=== PATIENT | male | born 1985 | race Caucasian/White ===

== ENCOUNTER 2016-11-12 20:54 | Emergency (ER) | payer OTHER ==
[~2016-11-12] VITALS: Ht 172.7 cm; Wt 128.2 kg
[2016-11-12 21:00] VITALS: BP 140/82; PULSE 97; RESP 16; O2SAT 96
--- NOTE | 2016-11-12 21:25 | ED.REPORT ---
HPI-Extremity Problem Upper Date of Service Nov 12, 2016 ED Provider: Baltazar Bautista DO The patient is a 30 year old male who presents to the ED due to right pinky finger pain injured during baseball [employer]. Pain is exacerbated with movement and extension. The finger is swollen and red. Nursing Notes Stated Complaint: RIGHT HAND/FINGER INJURY Chief Complaint: Extremity Trauma Nursing Notes Reviewed: Yes Allergies: Coded Allergies: No Known Allergies (Unverified Allergy, Unknown, 11/12/16) General Time Seen by MD: 21:24 Chief Complaint Finger injury right 5 Hx Obtained From: Patient Arrived By: Walk-in Onset Occurred: Just prior to arrival Symptom Duration: Since onset Caused by: Sports injury Context: Occurred at: Sports injury Location: : Finger right 5 Quality: Painful Severity: Current: Moderate Associated with: Reports: Joint swelling Exacerbated by: Extension, Movement Recent Healthcare: No recent doctor visit, No recent hospitalization Similar Sx Previous: No Past Medical History Past Medical History Denies Past Surgical History DENIES Family History Noncontributory Smoking History Current Every Day Smoker Social History Other Social History: Local resident Ambulatory Status Independent Review of Systems Musculoskeletal: Reports: Joint pain (right pinky finger ), Joint swelling Complete sys rev & neg: except as marked. Physical Exam Initial Vital Signs Vital Signs (First) Date Time Temp Pulse Resp B/P Pulse Ox O2 Delivery O2 Flow Rate FiO2 11/12/16 21:00 36.5 97 16 140/82 96 Room Air Initial VS: Reviewed Head / Eyes: Atraumatic, Normocephalic ENT: Mucous membranes moist Respiratory: Breath sounds normal Cardiovascular: Regular rate & rhythm Abdomen / GI: Soft, Non-tender Lower Extremities: Vascular intact, Neuro intact, No swelling Skin: Warm, Dry General/Constitutional: Awake, Alert, Cooperative Finger Exam : Finger Exam: Positive: Finger name... (R little), Swelling present..., Tenderness present... volar deformity of proximal aspect of middle phalanx of little right finger Interpretation & Diagnostics X-Ray Interpretation Xray Interpretation: Bones: There is dislocation of the proximal interphalangeal joint of the fifth digit. The middle phalanx is dislocated anteriorly. There is a moderately displaced fracture fragment of the dorsal plate of the proximal aspect of the middle phalanx. Carpal bones are normally aligned. No suspicious bony lesions. Soft tissues: No suspicious soft tissue calcifications. IMPRESSION: Fracture dislocation of the fifth digit as described above. Dictated by: Roby Lujan M.D. on 11/12/2016 at 21:43 Approved by: Roby Lujan M.D. on 11/12/2016 at 21:44 X-Ray Ordered: Hand right Interpretation / Wet Read by: Interpret - Radiologist Procedures Digital Nerve Block Time: 22:45 Procedure Performed by: ED physician, ED resident Consent / Setup / Site Prep: Informed consent provided, Consent from patient , Stand sterile technique Digit Involved: Little finger right Digital Block Procedure: Lidocaine 1% Post-Procedure / Complications: No complications, Condition improved, Tolerated procedure well, Patient stable Re-Eval/Medical Decision Med Decision/Clinical Course The finger was easily reduced however it is very unstable and subluxes volarly. I reduced it a third time and put him in a splint right away. This had clinical/anatomic reduction. He feels almost instant pain relief when is reduced. I will keep him splinted in extension and have him follow-up closely with orthopedics Expect he is going to need to have surgery due to the fracture and unstable PIP joint. Procedure: Reduction after digital block the digit was reduced with gentle in- line traction and extension. I can feel the joint reduced into place. Joint however was very unstable. Joint was splinted in extension clinically reduced. Re-Evaluation/Progress : Time of Eval: 22:55 Re-Evaluation/Progress Note: Pt rechecked. Performed finger reduction. Counseled Regarding: Diagnosis, Lab results, Need for follow-up, When/why to return to ED Discharge & Departure Impression: Primary Impression: Fracture, finger Encounter type: initial encounter Finger: little finger Fracture type: closed Phalanx: proximal Fracture alignment: displaced Laterality: right Qualified Code: S62.616A - Displaced fracture of proximal phalanx of right little finger, initial encounter for closed fracture Additional Impression: Dislocation, finger closed Encounter type: initial encounter Qualified Code: S63.259A - Unspecified dislocation of unspecified finger, initial encounter Disposition: Home Discharge Condition All VS Reviewed: Yes Condition: Stable Patient Instructions: Finger Dislocation (ED), Finger Fracture (GEN) Additional Instructions: You have a fracture dislocation of the right pinky finger. Call orthopedics on Tuesday for an appointment. You will probably need surgery on your finger due to the instability in the joint. Referrals: [facility] (PCP) Osmani Stock Brittany N PA-C Scribe Attestation Portion of this note were transcribed by Meme Mo. I, Dr. Bautista, personally performed the history, physical exam, and medical decision-making: I reviewed and confirmed the accuracy for the information in the transcribed note. Signed by: huang Fischer, 11/12/16 [id number] copies to: Osmani Stock DO; Ashtyn Mi PA-C, Todd P DO Nov 12, 2016 21:25 Meme Mo Nov 12, 2016 22:21
--- NOTE | 2016-11-12 21:46 | DRSVH ---
PROCEDURE: X-RAY RIGHT HAND, MINIMUM THREE VIEWS ([id number]) INDICATIONS: Pain TECHNIQUE: 3 views of the hand(s) acquired. COMPARISON: None. FINDINGS: Examination is limited by patient positioning factors. Bones: There is dislocation of the proximal interphalangeal joint of the fifth digit. The middle phal anx is dislocated anteriorly. There is a moderately displaced fracture fragment of the dorsal plate o f the proximal aspect of the middle phalanx. Carpal bones are normally aligned. No suspicious bony l esions. Soft tissues: No suspicious soft tissue calcifications. IMPRESSION: Fracture dislocation of the fifth digit as described above. Dictated by: Roby Lujan M.D. on 11/12/2016 at 21:43 Approved by: Roby Lujan M.D. on 11/12/2016 at 21:44
[2016-11-12] MEDS ORDERED: _oxyCODONE/APAP 5-325 mg Tablet PO PRN (22:15)
[2016-11-12] MEDS ORDERED: Lidocaine 2% 50 mL Inj NERVEBLOCK ONE (22:15)
--- NOTE | 2016-11-13 06:47 | DRSVH ---
PROCEDURE: X-RAY FINGERS, TWO VIEWS INDICATIONS: post reduction TECHNIQUE: AP hand, 2 views of the fifth finger(s) acquired. COMPARISON: [facility], CR, XR HAND 3VW RT, 11/12/2016, 21:52. FINDINGS: Bones: As previously identified, there is fracture of the dorsal plate along the proximal aspect of t he middle fifth phalanx. There remains a mild appearance of subluxation, although improved compared t o prior exam. Soft tissues: No suspicious soft tissue calcifications. IMPRESSION: Dorsal plate fracture of the fifth middle distal phalanx with a mild appearance of persis tent subluxation, although improved compared to prior exam. Dictated by: Milagros Arellano M.D. on 11/13/2016 at 6:44 Approved by: Milagros Arellano M.D. on 11/13/2016 at 6:46
[2016-11-16] MEDS ORDERED: HYDR-4003 PO (16:16)
== END 2016-11-12 23:40 | disposition home or self-care (01) ==
LOC: SED 20:54
DX: S62.616A Displaced fracture of proximal phalanx of right little finger, initial encounter for closed fracture (principal); S63.280A Dislocation of proximal interphalangeal joint of right index finger, initial encounter; W21.03XA Struck by baseball, initial encounter; Y93.64 Activity, baseball; Y92.89 Other specified places as the place of occurrence of the external cause; Y99.8 Other external cause status; F17.200 Nicotine dependence, unspecified, uncomplicated

== ENCOUNTER 2016-11-18 11:09 | Day surgery (SDC) | payer OTHER ==
[2016-11-18] VITALS (13 sets, daily range): BP systolic 109–150; BP diastolic 55–98; PULSE 63–99; RESP 9–16; O2SAT 94–98
[~2016-11-18] VITALS: Ht 172.7 cm; Wt 125.7 kg
[~2016-11-18 11:09] MED LIST: CeFAZolin Inj 3 GM in IV Premix 1 EACH IV ONE; HYDR-4003 PO; Lactated Ringer's 1,000 ML IV SCH
[2016-11-18] MEDS ORDERED: Dexamethasone 4 mg/mL Inj ONE (11:10)
[2016-11-18] MEDS ORDERED: Ondansetron 2 mg/mL 2 mL Inj ONE (11:10)
[2016-11-18] MEDS ORDERED: fentaNYL-PF 50 mCg/mL 2 mL Inj ONE (11:10)
[2016-11-18] MEDS ORDERED: Propofol 10,000 mCg/mL 20 mL Inj ONE (11:10)
--- NOTE | 2016-11-18 11:10 | PCM.HPANE ---
Patient Data Surgeon Admitting Provider: Attending Provider:Osmani Stock DO Primary Care Physician:Shahrzad Other Provider:Trinidad Lopez Anesthesia Reason for Visit Right Small Finger Pip Fracture Ht/WT & BMI Height (Feet): 5 Height (Inches): 8 Weight (Kilograms): 125.73 Body Mass Index 42.00 Allergies Coded Allergies: No Known Allergies (Unverified Allergy, Unknown, 11/12/16) Past Anesthesia History Anesthesia History: Positive for:: Fam Anesthesia Reaction (mother has nausea/ vomiting), Denies:: Anesthesia Reactions (no prior anes) Diabetes History Hx Diabetes?: No MRSA MRSA: No Medications Hypertension Medication: No Home Meds Incl Beta Simona: No Reported Medications Hydrocodone-Acetaminophen 5-325 mg 1 Each Tablet1 Tablet PO Q6H PRN For Pain Ref 0 11/16/16 History History of ENT Problems?: No HEENT History: Denies:: Cataracts Glaucoma Hearing Problem Denture Type: None Teeth Condition: Within Normal Limits Hx of Heart Problems?: No Cardiovascular History: Denies:: AICD Abdominal Aortic Aneurism Chest Pain Congestive Heart Failure Coronary Artery Disease Edema Heart Murmur Hypertension Irregular Heartbeat Pacemaker Hx of Respiratory Problem?: No Respiratory History: Denies:: Asthma COPD Emphysema Oxygen Administration Pneumonia Tuberculosis Use of C-PAP Machine Hx Neurologic Problems?: No Neurological History: Denies:: Alzheimer's Disease CVA Dementia Headaches Multiple Sclerosis Parkinson's Disease Seizures TIA Hx of GI Problems?: Yes Hx of Problems?: No Genitourinary History: Denies:: Kidney Stones Urinary Tract Infection Male Hx: Denies:: Prostate Problems Scrotal Mass Testicular Surgery Skin History: Denies:: History Skin Disorders? Pressure Ulcers Hx Musculoskeletal Problems?: Yes Musculoskeletal History: Positive for:: Back Injury (hx chiropractor ) Musculoskeletal Trauma (fx right small finger current admission problem) Denies:: Fibromyalgia Joint Replacement Myasthenia Gravis Osteoarthritis Systemic Lupus Hx of Psycho/Social Problems?: No Psycho Social History: Denies:: Anxiety Hx Depression Hx Surgeries?: No Hx Any Other Health Problems?: Yes Other History: Denies:: Cancer Thyroid Disease History Blood Transfusions: Positive for:: Accept Blood Products? Denies:: Blood Transfusions Hx Diabetes: No Hx Alcohol Use: YesAlcoholic Drinks Per Day: 1-2 drinks monthlyHx Substance Use: No Smoking Status: Current Every Day Smoker Have You Smoked inLast 12 mo: Yes (1/2 pack daily) Stop/Bang S-Snoring: Do You Snore Loudly: No T-Tired: feel tired, fatigued: Yes O-Obsered: Observed not breath: No P-Blood Pressure: treated: No B- Body Mass Index > 35 kg/m2: Yes A- Age over 50: No N- Neck Large Circumference: Yes G- Gender Male: Yes MOHAMUD Total Score: 4 MOHAMUD Risk Assessment: High Risk, =/>3 Yes MOHAMUD Category 4 OutPt Procedure: Yes Risk Assessment Category Category 1A: Patient has history of documented sleep apnea, and HAS NOT received any narcotic, sedative or anesthesia administration during this stay. Category 1B: Patient has history of documented sleep apnea, and HAS received any narcotic , sedative or anesthesia administration during this stay Category 2: Patient has SUSPECTED Obstructive Sleep Apnea, and HAS received any narcotic , sedative or anesthesia administration during this stay. Category 3: Patient has SUSPECTED Obstructive Sleep Apnea and HAS NOT received narcotic, sedative or anesthesia administration during this stay. Category 4: Outpatient in Procedural Areas with known sleep apnea or who screen positive for High Risk via the STOP/BANG questionnaire. Exam Exam General Appearance: Alert, Oriented X3, Cooperative, No Acute Distress HEENT/AIRWAY: MP 2 Lungs: Normal Air Movement Heart: Exam Unremarkable Plan Impression Patient chart reviewed, patient interviewed and anesthestic plan with risks, benefits, and alternatives discussed, and informed consent obtained. ASA Physical Status: ASA2 Mod Systemic Disease Anesthetic Plan: GA Bene/Risks/Altern/Consents: Yes HP Complete Prior to Induction: Yes Alli Vizcarra MD November 18, 2016 11:10
[2016-11-18] MEDS ORDERED: Lactated Ringer's 1,000 ML IV ONE (11:31)
[2016-11-18] MEDS ORDERED: CeFAZolin Inj 2 gm / 50mL D5W IV ONE (11:34)
[2016-11-18] MEDS ORDERED: HYDROcodone-APAP 7.5-325 mg Tablet PO PRN (11:55)
[2016-11-18] MEDS ORDERED: Lactated Ringer's 1,000 ML IV SCH (12:03)
[2016-11-18] MEDS ORDERED: Lactated Ringer's 500 ML IV PRN (12:03)
[2016-11-18] MEDS ORDERED: Ondansetron 2 mg/mL 2 mL Inj IVPUSH PRN (12:05)
[2016-11-18] MEDS ORDERED: fentaNYL-PF 50 mCg/mL 2 mL Inj IVPUSH PRN (12:05)
[2016-11-18] MEDS ORDERED: Phenylephrine 10,000 mCg/mL Inj IVPUSH PRN (12:05)
[2016-11-18] MEDS ORDERED: EPHEDrine Sulfate 50 mg/mL Inj IVPUSH PRN (12:05)
[2016-11-18] MEDS ORDERED: MetoCLOpramide 5 mg/mL 2 mL Inj IVPUSH PRN (12:05)
[2016-11-18] MEDS ORDERED: Dexamethasone 4 mg/mL Inj IVPUSH PRN (12:05)
[2016-11-18] MEDS ORDERED: HYDROmorphone 1 mg/mL Inj IVPUSH PRN (12:05)
[2016-11-18] MEDS ORDERED: Lidocaine 1%-Epi 1:100,000 20 mL Inj INFILTRATE ONE (12:16)
--- NOTE | 2016-11-18 13:55 | PCM.ANEP1 ---
Post Anesthesia Phase 1 PACU Phase 1 Assessment Vital Signs Vital Signs Date Time Temp Pulse Resp B/P Pulse Ox O2 Delivery O2 Flow Rate FiO2 11/18/16 13:50 71 16 112/63 95 Room Air 11/18/16 13:45 36.1 65 9 110/61 98 Room Air 11/18/16 13:35 36.1 69 9 124/86 98 Nasal Cannula 2 11/18/16 13:30 63 11 121/69 97 Nasal Cannula 2 11/18/16 13:25 73 11 121/81 96 Nasal Cannula 2 11/18/16 13:20 77 10 125/70 96 Nasal Cannula 2 11/18/16 13:15 84 10 125/86 95 Nasal Cannula 2 11/18/16 13:10 84 9 131/84 94 Nasal Cannula 2 11/18/16 13:05 96 10 146/98 94 Room Air 11/18/16 12:58 36.1 99 11 140/85 94 Room Air 11/18/16 11:26 36.6 74 14 150/91 97 Room Air Anesthetic Administered: GA Level of Alertness: Awake, talking ARMAS's with Equal Strength: Yes Pain: No Nausea or Vomiting: No Oxygen Delivery: Room Air Lungs: Normal Air Movement Dermatome Level: Full Sensation Complications: No Follow up Care: No Alli Vizcarra MD November 18, 2016 13:55
--- NOTE | 2016-11-18 22:00 | OP ---
[address] [address] OPERATIVE REPORT PATIENT: YAKOV PURDY : 1985 MR#: [id number] ADMIT: 11/18/2016 JOB ID: [id number] DATE OF SURGERY: 11/18/2016 PREOPERATIVE DIAGNOSIS(ES): Right small finger proximal interphalangeal joint fracture dislocation consisting of an avulsion fracture of the central slip. POSTOPERATIVE DIAGNOSIS(ES): Right small finger proximal interphalangeal joint fracture dislocation consisting of an avulsion fracture of the central slip. PROCEDURE: Open reduction, internal fixation of right small finger interphalangeal joint fracture dislocation. SURGEON: Osmani Stock DO. ANESTHESIA: General. BRIEF HISTORY: The patient is a pleasant 30-year-old male that sustained an impact to his right small finger while playing soft ball. He sustained a volar dislocation with an avulsion of the central slip. Attempted reduction was performed in the emergency department without any successful reduction being able to be maintained. He was placed into a splint and sent over to my clinic for further evaluation and treatment. I discussed with the patient due to the persistent volar subluxation, the risks benefits and indications to proceed with open reduction internal fixation of right small finger PIP fracture dislocation. He understood the risks include, but are not limited to, neurovascular injury, tendon injury, infection, failure of fixation, stiffness, persistent pain all which may require further intervention. The patient had all questions answered. Consent was signed and placed in the chart. PROCEDURE IN DETAIL: The patient was brought to the operative suite and placed supine on the operating room table. Surgical time-out was performed. Everyone in the room was in agreement. After appropriate anesthesia was obtained, a right upper arm tourniquet was applied and the right upper extremity prepped and draped in sterile fashion. Right upper extremity then exsanguinated and the tourniquet inflated to 250 mmHg. The patient's right small finger was manually reduced under fluoroscopy but was unable to be maintained in a neutral position without persistent volar subluxation. A curvilinear approach was then made dorsal to the small finger at the PIP joint. Dissection was then carried down to the central slip avulsion fragment with dorsally displaced force to the middle phalanx and volar directed force to the avulsion fragment. The joint could be then easily reduced. With the reduction maintained, a 0.035 inch K-wire was advanced in a transarticular fashion antegrade to hold the reduction in place. A 2nd transarticular pin performed in a cross pinning fashion was also used for additional security. The position of the K-wire was then verified under fluoroscopy. Both K-wires were then bent outside the skin and cut short. Copious irrigation was then performed. The skin flap then reapproximated with 5-0 nylon simple interrupted fashion. Next, an 0.028 inch K-wire was used to capture the central slip avulsion fragment and hold it in a transfixed position by directing it in a dorsal to volar direction. This K-wire was also bent outside the skin and cut short. Multiple views of fluoroscopy were utilized to verify that the joint was anatomically reduced and the central slip avulsion fragment was also reduced to its bed, the patient was then placed in a well-padded, well-molded ulnar gutter splint. ESTIMATED BLOOD LOSS: Less than 1 cc. COMPLICATIONS: None. DISPOSITION: The patient tolerated the procedure well. Anesthesia was reversed. The patient was transferred back to recovery. IMPLANTS: Two 0.035 inch K-wires and one 0.028 inch K-wire. POSTOPERATIVE PLAN: The patient will follow up with occupational therapy to be transitioned into a brace and mobilizing only the PIP joint into its current position of full extension. The patient can then start initiating range of motion of the MCP and the DIP joint to the small finger. At four weeks postop, we will then consider removing the dorsal pin as well as the transarticular pin. There is possibility of leaving one of the transarticular pins for a total of six weeks, but depending on the quality of the skin and the pin sites at that time.
== END 2016-11-18 23:59 | disposition home or self-care (01) ==
LOC: SAS 11:09
PROVIDERS: ATTEND Orthopaedic Surgery
DX: S62.616A Displaced fracture of proximal phalanx of right little finger, initial encounter for closed fracture (principal); W21.07XA Struck by softball, initial encounter; Y93.89 Activity, other specified; Y92.89 Other specified places as the place of occurrence of the external cause; Y99.8 Other external cause status; M54.30 Sciatica, unspecified side; E66.01 Morbid (severe) obesity due to excess calories; Z68.41 Body mass index [BMI] 40.0-44.9, adult
CPT/HCPCS: 26785; 76000; J0690; J1100; J1885; J2250; J2405; J3010; J7120

== ENCOUNTER 2016-12-17 21:59 | Emergency (ER) | payer OTHER ==
[~2016-12-17] VITALS: Ht 172.7 cm; Wt 125.0 kg
[~2016-12-17 21:59] MED LIST changes: -CeFAZolin Inj 3 GM in IV Premix 1 EACH IV ONE; -Lactated Ringer's 1,000 ML IV SCH
[2016-12-17 22:06] VITALS: BP 141/91; PULSE 82; RESP 16; O2SAT 99
--- NOTE | 2016-12-17 23:13 | ED.REPORT ---
HPI-Hand Prob/Inj Date of Service Dec 17, 2016 ED Provider: Didier Barker MD Pt is an otherwise healthy 30 year old male with a recent surgery on his right 5th digit who presents to the ED complaining of numbness in his right 5th digit onset 17:30. After his surgery on 11/19/16, the pt was able to feel his 5th digit with blood flow. He had the pins removed earlier today and he started noticing swelling, a burning sensation, and loss of feeling in the tip of his 5th digit with complete numbness. Upon inspection, the numbness had decreased to only half of the pt's 5th digit. His pain is relieved with ice. He reports after the pins were removed the distal end of his finger was swollen but this has decreased. Nursing Notes Stated Complaint: RT PINKY FINGER PAIN Chief Complaint: Extremity Trauma Nursing Notes Reviewed: Yes ([employer], Delfmems not reconciled) Allergies: Coded Allergies: No Known Allergies (Unverified Allergy, Unknown, 11/12/16) Scheduled PRN Hydrocodone-Acetaminophen 5-325 mg (Hydrocodone-Acetaminophen 5-325 mg) 1 Each Tablet 1 TABLET PO Q6H PRN PRN For Pain General Time Seen by Provider: 23:14 Chief Complaint Finger pain right Hx Obtained From: Patient Arrived By: Walk-in Onset Occurred: 5 - 8 hours ago Symptom Duration: Constant Progression Since Onset: Gradually improving Quality: Painful Severity: Current: Moderate Severity: Maximum: Moderate Recent Healthcare: Recent doctor visit Similar Sx Previous: No Past Medical History Past Medical History Denies Past Surgical History Hand surgery for finger injury Family History Noncontributory Smoking History Current Every Day Smoker Social History None reported Other Social History: Local resident Ambulatory Status Independent Review of Systems + Basic Review of Systems Eyes: Vision NL ENT: Hearing NL Cardiovascular: No chest pain GI: No abdominal pain Musculoskeletal: Reports: Extremity pain, Extremity swelling Neurologic: Reports: Numbness (At tip of right pinky) Complete sys rev & neg: except as marked. Physical Exam Initial Vital Signs Vital Signs (First) Date Time Temp Pulse Resp B/P Pulse Ox O2 Delivery O2 Flow Rate FiO2 12/17/16 22:06 36.3 82 16 141/91 99 Room Air Initial VS: Reviewed, Vital signs normal Head / Eyes: Atraumatic, Normocephalic, PERRL ENT: Mucous membranes moist, Conjunctiva normal, No scleral icterus Neck: Supple, Full range of motion Respiratory: Breath sounds normal, Clear to auscultation, No respiratory distress Cardiovascular: Regular rate & rhythm, Heart sounds normal, Intact distal pulses Abdomen / GI: Soft, Non-tender Extremities: Vascular intact, Neuro intact Skin: Warm, Dry, No cyanosis Neurologic: Alert, Oriented, Nonfocal Psychiatric: Mood/affect normal, Behavior normal Wrist / Hand: Neurologic intact, Vascular intact Flexion present at DIP joint. No clinical signs of infection. Splint was removed. Intact 2 point discrimination Good capillary refill No overt complications visible on exam General/Constitutional: Awake, Alert, No acute distress, Well appearing, Cooperative, Not toxic appearing Behavior: Positive: Anxious (Slightly) Interpretation & Diagnostics X-Ray Interpretation X-Ray Ordered: Hand right Interpretation / Wet Read by: Wet read ED physician Interpretation: Normal exam, No fracture/dislocation Re-Eval/Medical Decision Med Decision/Clinical Course This is a 30-year-old male presents with a concern of a problem following pin removal from his right fifth finger at the PIP joint earlier today. Reports since the removal, he developed some numbness and tingling and pain and burning in the finger. He called our on-call orthopedist, but was not comfortable with the response when he was told that was abnormal-so he came to the number murmur. He has had no fever. His exudate and better in the sensation in his back. He has no additional complaints. His bandage and splint were removed, and the finger inspected. There is trace amount of swelling the wounds are healing fine, there are no clinical signs of infection or overt complication. He has intact 2 point discrimination or no evidence of sensory loss. Radiographs were repeated, and his pins removed, but I do not see any overt pathology or shift. Patient is reassured, he is comfortable with this. The splint was reapplied. He is discharged in good condition. Source of Hx: Old records Re-Evaluation/Progress : Time of Eval: 23:50 Patient Status: Pain improved Re-Evaluation/Progress Note: Pt rechecked. Informed pt of plan for discharge. Pt understands and agrees with plan for discharge. F/U instructions and RTER warnings given. All questions addressed. Differential Diagnosis: Negative: Abrasion, Abscess, Amputation fingertip, Amputation injury, Arterial injury, Avulsion injury finger, Bite injury, Felon, Lymphangitis Counseled Regarding: Diagnosis, Lab results, Need for follow-up, When/why to return to ED Discharge & Departure Primary Impression: Postoperative pain Disposition: Home Discharge Condition Condition: Stable Additional Instructions: 1. I am not finding evidence of a complication from the pin removal earlier today. 2. I expect symptoms to continue improve with time. 3. Return if new or worsening symptoms. Referrals: [facility] (PCP) Fidel Attestation Portions of this note were transcribed by Alex Villanueva and Yadira Harding. I, Dr. Barker personally performed the history, physical exam and medical decision -making; I reviewed and confirmed the accuracy of the information in the transcribed note. Signed by: Alex Villanueva and Fidel Davis, 12/17/16 and 13:50 copies to: [facility] Didier Barker MD Dec 17, 2016 23:13 Yadira Porter Dec 17, 2016 23:23 ALEX VILLANUEVA Dec 17, 2016 23:38
--- NOTE | 2016-12-18 08:26 | DRSVH ---
PROCEDURE: X-RAY FINGERS, TWO VIEWS INDICATIONS: pain TECHNIQUE: AP hand, 2 views of the right fifth finger(s) acquired. COMPARISON: [facility], CR, XR FINGER(S) RT 2VW, 12/17/2016, 15:28. FINDINGS: Bones: Fracture of the dorsal plate of the base of the fifth middle phalange is noted. The fifth midd le phalange fracture fragment is slightly displaced dorsally. Soft tissues: No suspicious soft tissue calcifications. IMPRESSION: Fifth middle phalange fracture. Dictated by: Bridgette Sprague MD, PhD on 12/18/2016 at 8:24 Approved by: Bridgette Sprague MD, PhD on 12/18/2016 at 8:25
== END 2016-12-17 23:56 | disposition home or self-care (01) ==
LOC: SED 21:59
DX: G89.18 Other acute postprocedural pain (principal); F17.200 Nicotine dependence, unspecified, uncomplicated